=== PATIENT | female | born 1985 | race Caucasian/White ===

== ENCOUNTER 2017-10-25 14:46 | Outpatient (CLI) | END 2017-10-25 14:47 | disposition home or self-care (01) | LOC: FCC-LAB 14:46 | PROVIDERS: ATTEND Family Medicine | DX: J35.1 Hypertrophy of tonsils (principal) | CPT/HCPCS: 87651 ==

== ENCOUNTER 2017-10-28 11:40 | Outpatient (CLI) | END 2017-10-28 11:41 | disposition home or self-care (01) | LOC: FCC-LAB 11:40 | PROVIDERS: ATTEND Family Medicine | DX: R30.0 Dysuria (principal) | CPT/HCPCS: 87086 ==

== ENCOUNTER 2017-11-04 16:01 | Outpatient (CLI) | END 2017-11-04 16:02 | disposition home or self-care (01) | LOC: FCC-LAB 16:01 | PROVIDERS: ATTEND Family Medicine | DX: E03.9 Hypothyroidism, unspecified (principal) | CPT/HCPCS: 36415; 84443 ==

== ENCOUNTER 2017-11-13 14:40 | Outpatient (CLI) ==
--- NOTE | 2017-11-13 15:26 | DI ---
EXAM: Chest two view, frontal and lateral views. HISTORY: Cough. COMPARISON: None available. FINDINGS: The heart size is normal. There is no pulmonary vascular congestion. The lungs are clear . No pleural effusion or pneumothorax is seen. No acute osseous abnormality identified. Cholecyste ctomy clips noted. IMPRESSION: No acute cardiopulmonary process.
== END 2017-11-13 14:41 | disposition home or self-care (01) ==
LOC: RAD 14:40
PROVIDERS: ATTEND Family Medicine
DX: R05 Cough (principal)

== ENCOUNTER 2018-02-11 12:04 | Outpatient (CLI) | END 2018-02-11 12:05 | disposition home or self-care (01) | LOC: FCC-LAB 12:04 | PROVIDERS: ATTEND Family Medicine | DX: E03.9 Hypothyroidism, unspecified (principal); L80 Vitiligo | CPT/HCPCS: 36415; 84439; 84443 ==

== ENCOUNTER 2018-08-10 14:56 | Outpatient (CLI) | END 2018-08-10 14:57 | disposition home or self-care (01) | LOC: LAB 14:56 | PROVIDERS: ATTEND Family Medicine | DX: K52.9 Noninfective gastroenteritis and colitis, unspecified (principal) ==

== ENCOUNTER 2018-10-13 20:02 | Emergency (ER) ==
[2018-10-13 20:11] VITALS: BP 137/76; TEMP 100; BMI 45.7
--- NOTE | 2018-10-13 20:28 | ED.PDOC ---
General ED Provider: Dr. SEB GOODMAN-ER Chief Complaint: Nausea/Vomiting Stated Complaint: yosvany been vomiting and having diarrhea Time Seen by Physician: 20:10 Mode of Arrival: Walk-In Information Source: Patient Exam Limitations: No limitations Primary Care Provider: CLARISSA GIBSON Nursing and Triage Documentation Reviewed and Agree: Yes Does patient meet sepsis criteria?: No System Inflammatory Response Syndrome: Not Applicable Sepsis Protocol: For patient's 13 years and over: Temp is 96.8 and below OR 101 and greater Pulse >90 BPM Resp >20/minute Acutely Altered Mental Status Are patient's symptoms suggestive of a new infection, such as: -Pneumonia -Skin, Soft Tissue -Endocarditis -UTI -Bone, Joint Infection -Implantable Device -Acute Abdominal Infection -Wound Infection -Meningitis -Blood Stream Catheter Infection -Unknown GI Complaint Exam - Vomiting/Diarrhea Complaint/Exam Onset/Duration: 2 days Symptoms Are: Still present Initial Severity: Mild Current Severity: Moderate Character of Vomiting: Reports: Non-bilious Character of Diarrhea: Reports: Watery Aggravating: Reports: Food Alleviating: Reports: NPO Associated Signs and Symptoms: Reports: Cramping Recent Positive Test: No Use of Oral Contraceptives: No Use of Depoprovera: No Compliant With Contraceptive Use: No Surgical Obstruction Risk Factors: Reports: None Abdominal Findings: Present: None Kussmaul Respirations Present: No Differential Diagnoses: Dehydration, Viral Gastroenteritis, UTI Review of Systems - Review Of Systems Constitutional: Reports: No symptoms Eyes: Reports: No symptoms Ears, Nose, Mouth, Throat: Reports: No symptoms Respiratory: Reports: No symptoms Cardiac: Reports: No symptoms GI: Reports: Diarrhea, Nausea, Vomiting : Reports: No symptoms Musculoskeletal: Reports: No symptoms Skin: Reports: No symptoms Neurological: Reports: No symptoms Endocrine: Reports: No symptoms Hematologic/Lymphatic: Reports: No symptoms All Other Systems: Reviewed and Negative Past Medical History - Past Medical History Previously Healthy: Yes Endocrine: Reports: Unknown Cardiovascular: Reports: Unknown Respiratory: Reports: Unknown Hematological: Reports: Unknown Gastrointestinal: Reports: Unknown Genitourinary: Reports: Unknown Neuro/Psych: Reports: Unknown Musculoskeletal: Reports: Unknown Cancer: Reports: Unknown Last Menstrual Period: 2 weeks - Surgical History General Surgical History: Reports: Unknown - Family History Family History: Reports: Unknown - Social History Smoking Status: Never smoker Hx Substance Use: No Alcohol Screening: None - Immunizations Tetanus Shot up to Date: Yes Physical Exam - Physical Exam Appearance: Well-appearing, No pain distress, Well-nourished Eyes: TIMUR, EOMI, Conjunctiva clear ENT: Ears normal, Nose normal, Oropharynx normal Neck: Supple Respiratory: Airway patent, Breath sounds clear, Breath sounds equal, Respirations nonlabored Cardiovascular: RRR, Pulses normal, No rub, No murmur GI/: Soft Musculoskeletal: Normal strength Skin: Warm Neurological: Sensation intact Psychiatric: Affect appropriate Interpretation - Radiology Interpretation Radiology Interpretation By: Radiologist Radiology Results: Negative Exam Interpreted: CT Scan - EKG Interpretation Time of EKG #1: 20:28 Rate: Tachy Rhythm: Sinus Ectopy: None [place]: NL ST Segment: Normal Interpretation: sinus tachycardia Re-Evaluation - Re-Evaluation Time of Re-Evaluation: 21:53 Status: Improved Vital Signs Stable: Yes Pain Level: 0 Appearance: NAD Lungs: Clear Skin: Warm and Dry Neuro: Alert and Oriented X3 CV: RRR Critical Care Note - Critical Care Note Total Time (mins): 0 Course - Course Hematology/Chemistry: 10/13/18 20:21 10/13/18 20:21 Orders, Labs, Meds: Lab Review 10/13/18 10/13/18 10/13/18 20:12 20:21 20:21 WBC 9.32 RBC 4.53 Hgb 12.4 Hct 37.4 MCV 82.6 MCH 27.4 MCHC 33.2 RDW Coeff of Aneesh 13.9 Plt Count 226 Immature Gran % (Auto) 0.4 Neut % (Auto) 91.8 Lymph % (Auto) 4.6 L [place] % (Auto) 3.1 Eos % (Auto) 0.0 Baso % (Auto) 0.1 Immature Gran # (Auto) 0.0 Neut # (Auto) 8.6 H Lymph # (Auto) 0.4 L [place] # (Auto) 0.3 L Eos # (Auto) 0.0 Baso # (Auto) 0.0 ESR 16 Sodium 135.6 Potassium 2.91 L Chloride 102.2 Carbon Dioxide 21.1 L Anion Gap 15.21 BUN 8.6 Creatinine 0.71 Estimated GFR (MDRD) 94.00 BUN/Creatinine Ratio 12.11 Glucose 131.3 H Calcium 8.20 L Total Bilirubin 0.56 AST 31.9 ALT 23.1 Alkaline Phosphatase 63.8 Total Creatine Kinase 151.2 H CK-MB (CK-2) < 0.220 CK-MB (CK-2) % 0.1400 Troponin I < 0.012 Total Protein 7.48 Albumin 4.16 Globulin 3.32 Albumin/Globulin Ratio 1.25 Amylase 43.6 Lipase 26.4 Urine Color Urine Clarity Urine pH Ur Specific [place] Urine Protein Urine Glucose (UA) Urine Ketones Urine Blood Urine Nitrite Urine Bilirubin Urine Urobilinogen Ur Leukocyte Esterase Urine Microscopic RBC Ur Squamous Epith Cells Urine Mucus Influ A Molecular Assay Negative by naat Influ B Molecular Assay Negative by naat 10/13/18 20:37 WBC RBC Hgb Hct MCV MCH MCHC RDW Coeff of Aneesh Plt Count Immature Gran % (Auto) Neut % (Auto) Lymph % (Auto) [place] % (Auto) Eos % (Auto) Baso % (Auto) Immature Gran # (Auto) Neut # (Auto) Lymph # (Auto) [place] # (Auto) Eos # (Auto) Baso # (Auto) ESR Sodium Potassium Chloride Carbon Dioxide Anion Gap BUN Creatinine Estimated GFR (MDRD) BUN/Creatinine Ratio Glucose Calcium Total Bilirubin AST ALT Alkaline Phosphatase Total Creatine Kinase CK-MB (CK-2) CK-MB (CK-2) % Troponin I Total Protein Albumin Globulin Albumin/Globulin Ratio Amylase Lipase Urine Color Yellow Urine Clarity Clear Urine pH 5.0 Ur Specific [place] >=1.030 Urine Protein 1+ Urine Glucose (UA) Negative Urine Ketones Negative Urine Blood Trace-lysed Urine Nitrite Negative Urine Bilirubin Negative Urine Urobilinogen 0.2 Ur Leukocyte Esterase Negative Urine Microscopic RBC 0-2 Ur Squamous Epith Cells 2-5 Urine Mucus 2+ Influ A Molecular Assay Influ B Molecular Assay Orders Category Date Time Status EKG-(ED ONLY) Stat CARDIO 10/13/18 20:11 Completed ED IV/MEDIPORT/POWERPORT .ONCE EMERGENCY 10/13/18 20:12 Active AMYLASE Stat LAB 10/13/18 20:21 Completed CBC W/ AUTO DIFF Stat LAB 10/13/18 20:21 Completed COMPREHENSIVE METABOLIC PANEL Stat LAB 10/13/18 20:21 Completed CREATINE KINASE Stat LAB 10/13/18 20:21 Completed ESR Stat LAB 10/13/18 20:21 Completed FLU A/B MOLECULAR Stat LAB 10/13/18 20:12 Completed LIPASE Stat LAB 10/13/18 20:21 Completed MOLECULAR GROUP A STREP Stat LAB 10/13/18 20:12 Completed TROPONIN I Stat LAB 10/13/18 20:21 Completed URINALYSIS C & S IF INDICATED Stat LAB 10/13/18 20:37 Completed 0.9 % Sodium Chloride [Saline Flush] MEDS 10/13/18 20:12 Ordered 1 syr IVF PRN PRN Meperidine HCl/Pf [Demerol 25 mg/ml Vial] MEDS 10/13/18 20:12 Discontinued 25 mg IVP ONCE STA Ondansetron HCl/Pf [Zofran 4 mg/2 ml] MEDS 10/13/18 20:12 Discontinued 4 mg IVP ONCE STA Potassium Chloride [Potassium Chloride Premix Run] 200 MEDS 10/13/18 20:56 Discontinued ml IV .STK-MED Potassium Chloride [Potassium Chloride Premix [place]] 40 MEDS 10/13/18 20:44 Active meq Premix 100 ml Water 2 bag IV ONCE Sodium Chloride 0.9% [Sodium Chloride] 1,000 ml MEDS 10/13/18 20:[address] ABDOMEN/PELVIS WO CONTRAST Stat RADS 10/13/18 20:12 Completed Medications Generic Name Dose Route Start Last Admin Trade Name Freq PRN Reason Stop Dose Admin Potassium Chloride 40 meq/ 200 mls @ 50 mls/hr 10/13/18 20:44 10/13/18 21:03 Sterile Water IV 10/14/18 00:43 50 mls/hr ONCE STA Administration Sodium Chloride 1 syr 10/13/18 20:12 Saline Flush IVF PRN PRN To flush IV Discontinued Medications Generic Name Dose Route Start Last Admin Trade Name Freq PRN Reason Stop Dose Admin Sodium Chloride 1,000 mls @ 1,000 mls/hr 10/13/18 20:12 10/13/18 20:55 Sodium Chloride IV 10/13/18 21:11 1,000 mls/hr BOLUS STA Administration Meperidine HCl 25 mg 10/13/18 20:12 10/13/18 20:55 Demerol 25 Mg/Ml Vial IVP 10/13/18 20:13 25 mg ONCE STA Administration Ondansetron HCl 4 mg 10/13/18 20:12 10/13/18 20:55 Zofran 4 Mg/2 Ml IVP 10/13/18 20:13 4 mg ONCE STA Administration Vital Signs: Temp Pulse Resp BP Pulse Ox 10/13/18 20:03 100.0 F H 139 H 20 137/76 97 Departure - Departure Time of Disposition: 21:53 Disposition: HOME SELF-CARE Discharge Problem: Enteritis, Hypokalemia Instructions: Enteritis (ED) Condition: Good Pt referred to PMD for follow-up: Yes IPMP verified?: No Additional Instructions: zofran 4mg q 4hrs prn #5---avoid dairy for 3 days--micro K 10meq dailyh x 3 days ---f/u wtih pcp Allergies/Adverse Reactions: Allergies moxifloxacin HCl [From Avelox] Allergy (Severe, Unverified 10/13/18 20:08) Itching spots on face. oxycodone Allergy (Severe, Unverified 10/13/18 20:08) Itching hives codeine Allergy (Unknown, Unverified 10/13/18 20:08) Rash naproxen Allergy (Unknown, Unverified 10/13/18 20:08) Rash duloxetine HCl [From Cymbalta] Adverse Reaction (Mild, Unverified 10/13/18 20:08 ) Rash Neck, chest, face, malar rash. She showed pictures on her phone. Home Medications: Ambulatory Orders Hydroxychloroquine Sulfate [Plaquenil] 200 mg PO DAILY 06/19/18 Disposition Discussed With: Patient
[2018-10-13] MEDS: SODIUM CHLORIDE 1,000 ML IV STA (20:55)
[2018-10-13] MEDS: ZOFRAN 4 MG/2 ML IVP STA (20:55)
[2018-10-13] MEDS: DEMEROL 25 MG/ML VIAL IVP STA (20:55)
[2018-10-13] MEDS: POTASSIUM CHLORIDE PREMIX RUN 200 ML IV ONE (21:00)
[2018-10-13] MEDS: POTASSIUM CHLORIDE PREMIX RUN 40 MEQ in PREMIX 100 ML WATER 2 BAG IV STA (21:03)
--- NOTE | 2018-10-13 21:49 | CT ---
EXAM: CT of the abdomen and pelvis without contrast. HISTORY: Vomiting. PROCEDURE: Contiguous axial CT images of the abdomen and pelvis without contrast with coronal and sa gittal reformats. FINDINGS: The liver is normal in appearance. The gallbladder is surgically absent. The pancreas, sp yesenia, adrenal glands and kidneys are normal in appearance. The abdominal aorta is normal in appearan ce. The visualized loops of bowel and appendix are normal in appearance. No free fluid or free air in the abdomen or pelvis. The bladder is decompressed which limits the evaluation. The uterus is un remarkable. There are surgical clips in the bilateral adnexa. There are degenerative changes in the spine. Impression: No acute findings in the abdomen or pelvis. Operative changes as described.
== END 2018-10-13 22:05 | disposition home or self-care (01) ==
LOC: ED 20:02
DX: R11.2 Nausea with vomiting, unspecified (principal); R19.7 Diarrhea, unspecified; R25.2 Cramp and spasm; K52.9 Noninfective gastroenteritis and colitis, unspecified; E87.6 Hypokalemia
CPT/HCPCS: 36415; 80053; 81001; 82150; 82550; 82553; 83690; 84484; 85025; 85651; 87502; 87651; 93005; 93010; 96361; 96365; 96366; 96375; 99283

== ENCOUNTER 2018-10-16 12:42 | Outpatient (CLI) | END 2018-10-16 12:43 | disposition home or self-care (01) | LOC: RHC-LAB 12:42 | PROVIDERS: ATTEND Nurse Practitioner Family | DX: E87.6 Hypokalemia (principal) | CPT/HCPCS: 36415; 80048 ==

== ENCOUNTER 2019-03-30 09:47 | Outpatient (CLI) | END 2019-03-30 09:48 | disposition home or self-care (01) | LOC: RHC-LAB 09:47 → FCC-LAB 09:48 | PROVIDERS: ATTEND Family Medicine | DX: E03.9 Hypothyroidism, unspecified (principal) | CPT/HCPCS: 36415; 84443 ==